=== PATIENT | female | born 1950 | race American Indian/Alaskan Native ===

== ENCOUNTER 2018-10-11 15:15 | Outpatient (CLI) | payer MEDICARE, OTHER ==
--- NOTE | 2018-10-11 16:47 | XRay Report ---
FINAL REPORT PROCEDURE: Right hip. TECHNIQUE: AP and frogleg lateral views. HISTORY: Hip pain, bruising in leg. COMPARISON: No prior studies are available for comparison. FINDINGS: There is a total hip prosthesis in satisfactory position. There are no fractures. The soft tissues ar e unremarkable. There are large calcifications in the pelvis which probably represent degenerating ut erine leiomyomas. IMPRESSION: Total hip prosthesis in satisfactory position.
== END 2018-10-11 15:16 | disposition home or self-care (01) ==
LOC: XRAY 15:15
DX: M25.531 Pain in right wrist (principal); Z96.641 Presence of right artificial hip joint

== ENCOUNTER 2018-11-14 13:36 | Outpatient (CLI) | payer MEDICARE, OTHER ==
--- NOTE | 2018-11-14 17:00 | XRay Report ---
FINAL REPORT EXAM: XR SPINE LUMBOSACRAL 2-3V HISTORY: CERVICAL radiculopathy TECHNIQUE: AP, lateral and coned-down views of the lumbar spine PRIORS: None. FINDINGS: The vertebral body heights are well maintained. Severe disc space narrowing from L1 through L5 is not ed. Reversal of the normal lumbar lordosis is noted centered around L2. No evidence for spondylolysis or spondylolisthesis is seen. Pedicles are intact bilaterally at all le vels. The paraspinal soft tissues demonstrate amorphous calcifications in the pelvis, likely related to uterine fibroids. Vascular calcifications of the aorta are noted. Bilateral total hip prosthesis are in place. IMPRESSION: No acute abnormality. Severe disc space narrowing from L1 through L5. Reversal of the normal lumbar l ordosis centered around L2.
--- NOTE | 2018-11-14 17:02 | XRay Report ---
FINAL REPORT EXAM: XR SPINE CERVICAL 2-3V HISTORY: CERVICAL radiculopathy TECHNIQUE: AP, lateral , swimmer's, and odontoid views of the cervical spine PRIORS: None. FINDINGS: Postsurgical changes are noted with pedicle screws and stabilizing bars noted posteriorly at C3 throu gh C5. Reversal of normal cervical curvature centered around C4 is noted. Severe disc space narrowing from C2 through C7 is seen with congenital fusion of C6 and C7 noted. The vertebral body heights are well maintained. No prevertebral soft tissue swelling is seen. The od ontoid is intact. IMPRESSION: Chronic degenerative severe disc narrowing throughout the cervical spine. Postsurgical changes are no ryland at C3 through C5.
== END 2018-11-14 13:37 | disposition home or self-care (01) ==
LOC: XRAY 13:36
DX: M48.02 Spinal stenosis, cervical region (principal); M43.22 Fusion of spine, cervical region; M48.061 Spinal stenosis, lumbar region without neurogenic claudication
CPT/HCPCS: 72040; 72100